=== PATIENT | female | born 1955 | race African-American/Black ===

== ENCOUNTER 2024-06-14 18:53 | Emergency (ER) | payer BC, OTHER ==
[2024-06-14 19:23] VITALS: RESP 16; TEMP 98.1; BMI 29.6
[2024-06-14] MEDS ORDERED: FAMOTIDINE 20 MG/50 ML IVPB 20 MG/50 ML MG IVPB ONE (20:35)
[2024-06-14] MEDS ORDERED: ACETAMINOPHEN INJECTION 100 ML ONE (20:35)
[2024-06-14 20:38] LABS: HEMATOCRIT 38.2 % (34.1-44.9); HEMOGLOBIN 12.2 g/dL (11.2-15.7); MCHC 31.9 g/dl (32.2-35.5); MEAN PLT VOLUME 10.9 fl (9.4-12.3); PLATELET COUNT 298 x10^3/uL (182-369); RDW 16.1 % (12.4-16.6)
[2024-06-14] MEDS: ACETAMINOPHEN 1000 MG/100 ML BAG IVPB ONE (20:45)
[2024-06-14 20:58] LABS: INR 1.06 (0.83-1.09); POTASSIUM 3.9 mmol/L (3.5-5.1); PROTHROMBIN TIME (PATIENT) 11.6 SEC (9.7-13.0)
[2024-06-14 21:01] LABS: ACTIVATED PTT 31.5 SECONDS (25.2-36.5); ALBUMIN 4.3 g/dl (3.4-5.0); BLOOD UREA NITROGEN 15.5 mg/dL (7-18); MAGNESIUM 2.2 mg/dL (1.8-2.4)
[2024-06-14 21:05] LABS: BILIRUBIN,TOTAL 0.3 mg/dL (0.2-1); CREATININE 0.9 mg/dL (0.55-1.3); TOT PROT 7.8 g/dl (6.4-8.2)
[2024-06-14] MEDS: FAMOTIDINE 20 MG/50 ML IVPB 20 MG/50 ML MG IVPB ONE (21:16)
[2024-06-14 21:56] VITALS: BP 172/85; PULSE 83
== END 2024-06-14 22:11 | disposition home or self-care (01) ==
LOC: JER 18:53
PROC: 3E033GC Introduction of Other Therapeutic Substance into Peripheral Vein, Percutaneous Approach (ICD-10-PCS; principal; 2024-06-14)
PROC: 3E033NZ Introduction of Analgesics, Hypnotics, Sedatives into Peripheral Vein, Percutaneous Approach (ICD-10-PCS; 2024-06-14)
DX: R07.89 Other chest pain (principal); R10.12 Left upper quadrant pain; R09.81 Nasal congestion; R09.82 Postnasal drip
CPT/HCPCS: 36415; 71046-TC-FY; 80053; 83690; 83735; 84484; 85027; 85610; 85730; 93005; 93010; 99285-25; J0131